=== PATIENT | female | born 1995 | race Caucasian/White ===

== ENCOUNTER 2016-10-07 15:21 | Inpatient (IN) | payer MEDICAID ==
[~2016-10-07] VITALS: Ht 154.9 cm; Wt 60.0 kg
[2016-10-07] MEDS ORDERED: SODIUM CHLORIDE 0.9% 1,000 ML IV ONE (15:48)
[2016-10-07] MEDS ORDERED: SODIUM CHLORIDE 0.9% 1,000ML IVBOLUS ONE (16:00)
[2016-10-07 16:14] LABS: ASPARTATE AMINO TRANSFERASE 126 U/L (15-37); BLOOD UREA NITROGEN 12 mg/dL (7-18)
[2016-10-07] MEDS ORDERED: ONDANSETRON 2MG/ML, 2ML ONE (19:06)
[2016-10-07] MEDS ORDERED: ONDANSETRON 2MG/ML, 2ML IVPush ONE (20:00)
[2016-10-07 20:14] VITALS: BP 105/69
[2016-10-07] MEDS ORDERED: CEFAZOLIN PMX 1GM/50ML 50 ML IV SCH (21:00)
[2016-10-07] MEDS ORDERED: HEPARIN 5,000 UNITS/ML, 1ML SQ ONE (21:00)
[2016-10-07] MEDS: SODIUM CHLORIDE 0.9% 1,000 ML IV SCH (23:20)
[2016-10-07] MEDS: CEFTRIAXONE PMX 1GM/50ML 50 ML IVPB SCH (23:20)
[2016-10-08 03:08] VITALS: BP 98/62
[2016-10-08 06:32] LABS: BLOOD UREA NITROGEN 10 mg/dL (7-18)
[2016-10-08 07:07] VITALS: BP 101/63
[2016-10-08] MEDS: SODIUM CHLORIDE 0.9% 1,000 ML IV SCH ×2 (07:25→14:28)
[2016-10-08] MEDS: ONDANSETRON 2MG/ML, 2ML IVPush PRN ×2 (07:25→18:40)
[2016-10-08 13:14] VITALS: BP 95/55
[2016-10-08] MEDS ORDERED: FENTANYL PF 250 MCG/5ML ONE (15:52)
[2016-10-08] MEDS ORDERED: MIDAZOLAM 1 MG/ML, 2ML ONE (15:52)
[2016-10-08] MEDS ORDERED: NEOSTIGMINE 1 MG/ML, 10ML ONE (16:04)
[2016-10-08] MEDS ORDERED: CEFAZOLIN 1,000 MG ONE (16:04)
[2016-10-08] MEDS ORDERED: ROCURONIUM 10 MG/ML ONE (16:04)
[2016-10-08] MEDS ORDERED: GLYCOPYRROLATE 0.2MG/1ML ONE (16:04)
[2016-10-08] MEDS ORDERED: SUCCINYLCHOLINE 20 MG/ML, 10ML ONE (16:04)
[2016-10-08] MEDS ORDERED: DEXAMETHASONE 4 MG/ML, 1ML ONE (16:04)
[2016-10-08] MEDS ORDERED: ONDANSETRON 2MG/ML, 2ML ONE ×2 (16:04→17:21)
[2016-10-08] MEDS ORDERED: PROPOFOL 10 MG/ML, 20ML ONE (16:04)
[2016-10-08] MEDS ORDERED: BUPIVACAINE/PF-EPI 0.5% 1:200K ONE (16:06)
[2016-10-08] MEDS ORDERED: OMNIPAQUE 350 MG/ML, 50 ML BOTTLE IV ONE (16:20)
[2016-10-08] MEDS ORDERED: FENTANYL PF 100 MCG/2ML ONE (17:21)
[2016-10-08] MEDS ORDERED: ACETAMINOPHEN 650 MG/20.3 ML UDC ONE (17:21)
[2016-10-08] MEDS ORDERED: OXYcodone 5 MG/5 ML ORAL.SOL UDC ONE (17:22)
[2016-10-08] MEDS: FENTANYL PF 100 MCG/2ML IV PRN ×4 (17:29→18:00)
[2016-10-08] MEDS ORDERED: LABETALOL 5MG/ML, 20ML IV PRN (17:30)
[2016-10-08] MEDS ORDERED: OXYcodone 5 MG/5 ML ORAL.SOL UDC PO PRN (17:30)
[2016-10-08] MEDS ORDERED: ONDANSETRON 2MG/ML, 2ML IVPush PRN (17:30)
[2016-10-08] MEDS ORDERED: hydrALAzine 20 MG/ML, 1ML IV PRN (17:30)
[2016-10-08] MEDS ORDERED: METOCLOPRAMIDE 5 MG/ML, 2ML IV PRN (17:30)
[2016-10-08] MEDS ORDERED: ACETAMINOPHEN 325 MG TABLET PO PRN (17:30)
[2016-10-08] MEDS ORDERED: HYDROmorphone 1 MG/ML, 1ML IV PRN (17:30)
[2016-10-08 20:12] VITALS: BP 111/73
[2016-10-08] MEDS: CEFTRIAXONE PMX 1GM/50ML 50 ML IVPB SCH (21:36)
[2016-10-09 01:15] VITALS: BP 100/64
[2016-10-09 04:02] VITALS: BP 103/66
[2016-10-09] MEDS: SODIUM CHLORIDE 0.9% 1,000 ML IV SCH (04:32)
[2016-10-09 05:59] LABS: ASPARTATE AMINO TRANSFERASE 38 U/L (15-37); BLOOD UREA NITROGEN 6 mg/dL (7-18)
[2016-10-09 07:25] VITALS: BP 110/75
[2016-10-09] MEDS ORDERED: HYDR-3240 PO (09:02)
[2016-10-09 09:58] VITALS: BP 108/69
== END 2016-10-09 11:15 | disposition home or self-care (01) | DRG 418 ==
LOC: ED 18:03 → EDIP 18:44 → 4NOR 19:50 → DCLOUNGE 10-09 10:48
PROVIDERS: ADMIT Internal Medicine
PROC: 0FC98ZZ Extirpation of Matter from Common Bile Duct, Via Natural or Artificial Opening Endoscopic (ICD-10-PCS; 2016-10-08)
PROC: 0FT44ZZ Resection of Gallbladder, Percutaneous Endoscopic Approach (ICD-10-PCS; principal; 2016-10-08 16:00)
DX: K80.63 Calculus of gallbladder and bile duct with acute cholecystitis with obstruction (principal); D68.59 Other primary thrombophilia; K29.80 Duodenitis without bleeding; D47.3 Essential (hemorrhagic) thrombocythemia; K76.89 Other specified diseases of liver
CPT/HCPCS: 36415; 74181; 74328; 80048; 80053; 81001; 83690; 84703; 85025; 87086; 88304; 96361; 96374; J0690; J0696; J1100; J1644; J2250; J2405; J2704; J2710; J3010; J3490; Q9967; C1769; J0330; J7030